=== PATIENT | female | born 1950 | race Caucasian/White ===

== ENCOUNTER 2016-07-23 13:48 | Emergency (ER) | payer OTHER ==
[~2016-07-23] VITALS: Ht 154.9 cm; Wt 71.2 kg
[~2016-07-23 13:48] MED LIST: ALENDRONATE SOD70 MG PO; AMBIEN 5 MG TABL5 M1 PO; CELEXA20 MG PO; MIRAPEX 0.250.25 M1 PO; NORCO 5-325 TA1 EACH PO; OMEPRAZOLE20 M2 PO; SIMVASTATIN40 MG PO; TRAMADOL 50 MG50 MG PO; VITAMIN D1000 UNIT PO; ZANTAC 150MG T150 MG PO; ZESTORETIC 20-1 EAC3 PO
[2016-07-23] MEDS ORDERED: NORCO 5-325 TA1 EACH PO (14:48)
[2016-07-23] MEDS ORDERED: EC-NAPROSYN500 M1 PO (14:48)
[2016-07-23] MEDS ORDERED: SENOKOT-S1 TA1 PO (14:48)
== END 2016-07-23 15:50 | disposition home or self-care (01) ==
LOC: ER 13:48
DX: S92.001A Unspecified fracture of right calcaneus, initial encounter for closed fracture (principal); I10 Essential (primary) hypertension; K21.9 Gastro-esophageal reflux disease without esophagitis; F32.9 Major depressive disorder, single episode, unspecified; E78.00 Pure hypercholesterolemia, unspecified; F10.99 Alcohol use, unspecified with unspecified alcohol-induced disorder; W18.43XA Slipping, tripping and stumbling without falling due to stepping from one level to another, initial encounter; Y93.01 Activity, walking, marching and hiking; Y92.89 Other specified places as the place of occurrence of the external cause; Y99.8 Other external cause status

== ENCOUNTER 2016-08-07 05:37 | Observation (INO) | payer OTHER ==
[~2016-08-07] VITALS: Ht 152.4 cm; Wt 72.1 kg
[2016-08-07] VITALS (7 sets, daily range): BP systolic 98–123; BP diastolic 57–68
--- NOTE | ~2016-08-07 | O ---
[facility] [place] [address] OPERATIVE REPORT Name: LELA WARE Room #: 546-P [facility]..#: [id number] Admission: 08/07/16 Attend Phys: Dieudonne Scott MD Discharge: Date of : 48 Report #: [id number] THIS REPORT FOR: //name// CC: Alfredito Scott DATE OF SERVICE: 08/07/2016 PREOPERATIVE DIAGNOSIS: Right calcaneus fracture, intra-articular. POSTOPERATIVE DIAGNOSIS: Right calcaneus fracture, intra-articular. PROCEDURE: Right calcaneus open reduction and internal fixation. SURGEON: Dieudonne Scott M.D. SWITCHBOARD TROUBLESHOOTER: ADELA Hansen. ANESTHESIA: General. ESTIMATED BLOOD LOSS: Minimal. DRAINS: No drains. TOURNIQUET TIME: One hour. DESCRIPTION OF PROCEDURE: The patient was brought to the operating room, where she was placed under general anesthesia. Once under adequate general anesthesia, her right lower extremity was prepped and draped in sterile manner after being placed into a lateral decubitus position. The right lower extremity was then elevated and exsanguinated and tourniquet placed to 300 mmHg. A sinus tarsi incision was then made along the lateral hindfoot. Dissection was carried down to the lateral fat pad, which was then incised and exposure was then made of the calcaneal fracture. There was a significantly impacted portion of the fracture which was identified and subsequently elevated utilizing a [place] elevator. There was a missing portion of cartilage approximately 5 mm just anterior to this. Once the cartilage and its bony fragment had been elevated and reduced into a satisfactory position, the lateral plate from the [employer] small lateral calcaneal sinus tarsi plate was placed. Multiple fixation points were achieved with 6 locking screws placed across the fracture and extending to the anterior calcaneus. Excellent fixation and alignment was achieved in this manner as verified under fluoroscopy. The wound was irrigated copiously and closed with 2-0 Vicryl in deep and subcutaneous tissues and evita were used for the skin. The wounds were dressed with Xeroform, 4 x 4s and a sterile soft compressive dressing with a short leg cast was placed. Tourniquet was let down at approximately 1 hour. Toes were pink and warm with good capillary refill. [address] [address] OPERATIVE REPORT Name: LELA WARE Room #: 546-P [facility] M.R.#: [id number] Admission: 08/07/16 Attend Phys: Dieudonne Scott MD Discharge: Date of : 48 Report #: [id number] There were no complications from the procedure. The patient tolerated the procedure well and went to the recovery room without incident. By: [id number] Dieudonne Scott MD /nt
--- NOTE | ~2016-08-07 | EKG ---
[address] [address] ELECTROCARDIOGRAM REPORT Name: LELA WARE Room #: 546-P [facility].#: [id number] Admission: 08/07/16 Attend Phys: Dieudonne Scott MD Discharge: 08/08/16 Date of : 48 Report #: [id number] THIS REPORT FOR: //name// [facility] Test Date: 2016-08-07 Test Time: 10:56:44 Pat Name: LELA WARE Department: Room: 546 Gender: F Head Coach: CHILO : 1950 Requested By: Dieudonne Scott Order Number: [id number] MD: Jaya Arthur Measurements Intervals Fletcher Rate: 63 P: 33 NE: 151 QRS: 2 QRSD: 96 T: 6 QT: 431 QTc: 442 Interpretive Statements Sinus rhythm Compared to ECG 07/26/2015 08:38:34 No significant changes Electronically Signed On 08-08-2016 16:08:16 CDT by Jaya Arthur [email or web address] <ELECTRONICALLY SIGNED> By: Jaya Arthur MD 08/08/16 1608 [id number] 55 Jaya Arthur MD /REINIER
--- NOTE | ~2016-08-07 | HC ---
[facility] [address] CONSULTATION Name: LELA WARE Room #: 546-P [facility]#: [id number] Admission: 08/07/16 Attend Phys: Dieudonne Scott MD Discharge: Date of : 48 Report #: [id number] THIS REPORT FOR: //name// CC: Alfredito Scott DATE OF SERVICE: 08/07/2016 REASON FOR CONSULTATION: Medical management. HISTORY OF PRESENT ILLNESS: The patient is a pleasant 65-year-old female seen as a consult postop day zero from a heal fracture repair surgery on her right heel/right calcaneus. The patient is doing well postoperative with pain well controlled. She has no other complaints, no fevers, chills, chest pain, nausea, vomiting, diarrhea, dizziness, headaches, or other problems. PAST MEDICAL HISTORY: Includes, 1. Hypertension. 2. Hyperlipidemia. 3. Anxiety and depression. 4. Arthritis and osteoporosis. PAST SURGICAL HISTORY: Includes, 1. Bilateral carpal tunnel surgery. 2. Tubal ligation. MEDICATIONS: Refer to reconciliation note. ALLERGIES: No known drug allergies. SOCIAL HISTORY: Lives at home by herself. Nonsmoker. FAMILY HISTORY: Includes arthritis. REVIEW OF SYSTEMS: Twelve-point review of systems performed and negative except as mentioned in history of present illness. PHYSICAL EXAMINATION: VITAL SIGNS: Afebrile, pulse of 59, respiration rate 18, blood pressure 118/68, O2 sat 100 on room air. GENERAL: Elderly lady in no acute distress. HEENT: Unremarkable. NECK: No JVD or thyromegaly. CARDIOVASCULAR: S1 and S2 present. regular. RESPIRATORY: Bilateral air entry present bilaterally. ABDOMEN: Soft, nontender. [facility] [place] [place] [address] [place] [address] CONSULTATION Name: LELA WARE Room #: 546-P [facility].#: [id number] Admission: 08/07/16 Attend Phys: Dieudonne Scott MD Discharge: Date of : 48 Report #: [id number] EXTREMITIES: Without edema. NEUROLOGIC: Awake, alert. No obvious focal findings. EXTREMITIES: Right heel dressed with minor bruising noted of distal toes, cast present. NEUROLOGIC: Awake, alert. No obvious focal findings. LABS AND INVESTIGATIONS: Chemistry unremarkable. ASSESSMENT AND PLAN: 1. This 65-year-old female seen postop day zero from right calcaneal fracture open reduction and internal fixation. 2. Right calcaneal fracture open reduction and internal fixation management per orthopedic surgeon. 3. Hypertension. Resume home meds. 4. Hyperlipidemia. Resume her statin. 5. Gastroesophageal reflux disease. Resume home meds. Thanks for this consultation. I appreciate the opportunity to be involved in this patient's care. By: [id number] Ra Conley MD /nt
[~2016-08-07 05:37] MED LIST changes: +EC-NAPROSYN500 M1 PO; +MULTIVITAMINS PO; +SENOKOT-S1 TA1 PO
[2016-08-07 11:01] LABS: CALCIUM 9.1 mg/dL (8.5-10.1); CREATININE 0.9 mg/dL (0.6-1.0)
[2016-08-08 04:00] VITALS: BP 120/59
[2016-08-08 04:49] LABS: HEMOGLOBIN 11.2 gm/dL (12.0-15.0); MCH 29.8 pg (26.0-34.0); MCHC 33.8 g/dL (28.0-37.0); MCV 88.3 fL (80.0-100.0); RBC 3.74 mil/uL (4.20-5.00); RDW 13.5 % (10.5-14.5); WBC 10.6 thou/uL (4.0-11.0)
[2016-08-08 04:58] LABS: CALCIUM 8.5 mg/dL (8.5-10.1); CREATININE 0.8 mg/dL (0.6-1.0); POTASSIUM 4.4 mmol/L (3.5-5.1)
[2016-08-08 08:22] VITALS: BP 136/77
[2016-08-08] MEDS ORDERED: PERCOCET PO (09:52)
[2016-08-08 11:39] VITALS: BP 136/77
== END 2016-08-08 12:18 | disposition home or self-care (01) ==
LOC: OR 05:37 → TBA 05:37 → OR 08:59 → 5S 14:43
PROVIDERS: Hospitalist; Orthopaedic Surgery Foot and Ankle Surgery
DX: S92.001A Unspecified fracture of right calcaneus, initial encounter for closed fracture (principal); W10.9XXA Fall (on) (from) unspecified stairs and steps, initial encounter; Y93.89 Activity, other specified; Y92.009 Unspecified place in unspecified non-institutional (private) residence as the place of occurrence of the external cause; Y99.8 Other external cause status
CPT/HCPCS: 50010; 50101; 50386; 51412; 55430; 56524; 57091; 62110; 62900; 64042; 64043; 70005

== ENCOUNTER → 2016-10-09 | Outpatient (CLI) | payer OTHER ==
[~2016-10-09] MED LIST changes: +PERCOCET PO
== END ==
LOC: ULTRA 12:25
DX: M79.604 Pain in right leg (principal); M79.89 Other specified soft tissue disorders

== ENCOUNTER → 2017-12-14 | Outpatient (CLI) | payer OTHER | LOC: RAD 11:14 | DX: I70.0 Atherosclerosis of aorta (principal) ==

== ENCOUNTER → 2018-09-13 | Outpatient (CLI) | payer OTHER | LOC: RAD 10:43 | DX: Z12.31 Encounter for screening mammogram for malignant neoplasm of breast (principal) ==

== ENCOUNTER → 2019-03-14 | Outpatient (CLI) | payer OTHER | LOC: ULTRA 10:13 | DX: N85.8 Other specified noninflammatory disorders of uterus (principal) ==